=== PATIENT | male | born 1950 | race Caucasian/White ===

== ENCOUNTER 2021-06-21 13:22 | Emergency (ER) | payer OTHER ==
[2021-06-21 14:43] LABS: HEMOGLOBIN 15.7 gm/dl (14.0-17.5); RED BLOOD COUNT 4.86 M/UL (4.20-5.50); WHITE BLOOD COUNT 10.6 K/UL (4.5-11.0)
[2021-06-21 14:55] LABS: BUN/CREATININE RATIO 20 (0-10)
[2021-06-21] MEDS ORDERED: AUGMENTIN 875-1 EACH PO (18:09)
[2021-06-21] MEDS ORDERED: BACTRIM DS TAB1 EACH PO (18:09)
== END 2021-06-21 18:36 | disposition home or self-care (01) ==
LOC: ER1 13:22
PROVIDERS: Physician Assistant Medical
DX: L03.317 Cellulitis of buttock (principal); I48.91 Unspecified atrial fibrillation; E11.9 Type 2 diabetes mellitus without complications; I10 Essential (primary) hypertension; Z90.89 Acquired absence of other organs
CPT/HCPCS: 80053; 83605; 85025; 85610; 87040; 96374; 99284; J7030; Q9967